=== PATIENT | male | born 1950 | race African-American/Black ===

== ENCOUNTER 2023-02-27 06:32 | Day surgery (SDC) | payer MEDICARE ==
[2023-02-25 12:20] VITALS: BMI 25.9
[~2023-02-27 06:32] MED LIST: Fluorouracil 100 MG, Enoxaparin 25 MG, EPINEPHrine 0.3 MG in Ophthalmic Irrigation Solu... IRR SCH
[2023-02-27] MEDS ORDERED: Midazolam HCl 2 mg/2 ml Vial ONE (06:57)
[2023-02-27] MEDS ORDERED: fentaNYL 50 mcg/mL 1 mL Vial ONE ×2 (06:57)
[2023-02-27] MEDS ORDERED: PHENYLephrine 2.5% Ophth Soln 15 ml Bottle ONE (07:39)
[2023-02-27] MEDS ORDERED: Cyclopentolate 0.5% Opth Drops 15 ML BOT ONE (07:39)
[2023-02-27] MEDS ORDERED: PROPOFOL 200 MG/20 ML VIAL ONE (08:57)
[2023-02-27] MEDS ORDERED: Lidocaine 4% PF 5 ML AMP ONE (09:08)
[2023-02-27] MEDS ORDERED: Indocyanine Green 25 MG/10 ML VIAL ONE (09:08)
[2023-02-27] MEDS ORDERED: Triamcinolone 40 MG/ML VIAL ONE (09:08)
[2023-02-27] MEDS ORDERED: Bupivacaine 0.75% 10 ML VIAL ONE (09:08)
[2023-02-27] MEDS ORDERED: CEFAZOLIN 1 GM VIAL ONE (09:08)
[2023-02-27] MEDS ORDERED: Lidocaine 1% PF 5 ML VIAL ONE (09:08)
[2023-02-27] MEDS ORDERED: Maxitrol 0.1% Opth Oint 3.5 GM TUBE ONE (09:08)
== END 2023-02-27 10:39 | disposition home or self-care (01) ==
LOC: SDC 06:32
PROVIDERS: ATTEND Ophthalmology Retina Specialist
PROC: 08T43ZZ Resection of Right Vitreous, Percutaneous Approach (ICD-10-PCS; principal; 2023-02-27)
DX: H35.371 Puckering of macula, right eye (principal)
CPT/HCPCS: 67041; J3010; J0171; J0690; J1650; J2250; J2704; J3301; J3490; J9190